=== PATIENT | male | born 1955 | race Caucasian/White ===

== ENCOUNTER 2019-05-03 08:55 | Outpatient (CLI) | payer OTHER ==
--- NOTE | 2019-05-03 15:44 | XRAY Report ---
Reason: LBP, SCIATICA Procedure Date: 05/03/2019 Accession Number: [id number] / [id number] Procedure: XRN - Lumbar Spine 2 View CPT Code: FULL RESULT: EXAM: LUMBOSACRAL SPINE RADIOGRAPHY EXAM DATE: 05/03/2019 09:13 AM. CLINICAL HISTORY: LBP, SCIATICA. COMPARISONS: None. TECHNIQUE: 3 views. FINDINGS: Alignment: Normal. No spondylolisthesis or scoliosis. Bones: Five [id number] lumbar vertebral bodies are present. No fractures or bone lesions. Disks: Osteophyte at every level with disk space narrowing at L3-L4, L4-L5. Facets: L5-S1 facet arthropathy Sacroiliac Joints: Unremarkable. Soft Tissues: Vascular calcifications The visualized bowel gas pattern is normal. IMPRESSION: Moderate DJD RADIA
== END 2019-05-03 08:56 | disposition home or self-care (01) ==
LOC: DI.N 08:55
PROVIDERS: ATTEND Internal Medicine
DX: M51.36 Other intervertebral disc degeneration, lumbar region (principal); M47.816 Spondylosis without myelopathy or radiculopathy, lumbar region
CPT/HCPCS: 72100

== ENCOUNTER 2022-01-21 07:26 | Day surgery (SDC) | payer OTHER ==
[~2022-01-21 07:26] MED LIST: PROPOFOL 500 MG/50 ML 500 MG/50 ML VIAL ONE
[2022-01-21] MEDS ORDERED: LACTATED RINGERS 1,000 ML IV ONE ×2 (07:40→08:27)
--- NOTE | 2022-01-21 07:56 | ANESTHESIA ---
Pre-Anesthesia VS, & Labs - Diagnosis family hx cancer, hx polyps - Procedure colonoscopy Vital Signs: Temp Pulse Resp BP Pulse Ox 36.3 C L 80 16 154/86 H 96 01/21/22 07:41 01/21/22 07:41 01/21/22 07:41 01/21/22 07:41 01/21/22 07:41 Height: 5 ft 9 in Weight (kg): 76 kg Body Mass Index: 24.7 BMI Classification: Healthy weight - NPO >8 hours Last Fluid Intake: am prep - Lab Results Lab results reviewed: Yes Home Medications and Allergies Home Medications: Ambulatory Orders Clopidogrel [Plavix] 1 tab PO DAILY 01/20/22 Lisinopril [Zestril] 1 tab PO DAILY 01/20/22 Simvastatin [Zocor] 1 tab PO DAILY 01/20/22 Tamsulosin [Flomax] 1 cap PO DAILY 01/20/22 hydroCHLOROthiazide [Hydrochlorothiazide] 1 tab PO DAILY 01/20/22 metFORMIN [Glucophage] 1 tab PO DAILY 01/20/22 Clopidogrel [Plavix] 1 tab PO DAILY 01/20/22 Lisinopril [Zestril] 1 tab PO DAILY 01/20/22 Simvastatin [Zocor] 1 tab PO DAILY 01/20/22 Tamsulosin [Flomax] 1 cap PO DAILY 01/20/22 hydroCHLOROthiazide [Hydrochlorothiazide] 1 tab PO DAILY 01/20/22 metFORMIN [Glucophage] 1 tab PO DAILY 01/20/22 Allergies/Adverse Reactions: Allergies Allergy/AdvReac Type Severity Reaction Status Date / Time No Known Drug Allergies Allergy Verified 01/20/22 14:17 Anes History & Medical History - Anesthetic History Anesthesia Complications: reports: No previous complications Family history of Anesthesia Complications: Denies Family history of Malignant Hyperthermia: Denies - Medical History Cardiovascular: reports: Hypertension, High cholesterol Pulmonary: reports: None Gastrointestinal: reports: None Urinary: reports: None Musculoskeletal: reports: Osteoarthritis Endocrine/Autoimmune: reports: Type 2 diabetes Skin: reports: None - Surgical History General: reports: Colonoscopy, EGD Orthopedic: reports: Carpal Tunnel surgery Exam General: Alert, Oriented x3, Cooperative Dental: Other Mouth Openin Fingerbreadth Neck Mobility: Normal Mallampati classification: II Respiratory: Lungs clear, Normal breath sounds, No respiratory distress Cardiovascular: Regular rate Neurological: Normal speech Mental/Cognitive Status: Alert/Oriented X3, Normal for patient Cognitive Status: Within normal limits Plan Anesthesia Type: Total IV Consent for Procedure(s) Verified and Reviewed: Yes Code Status: Attempt Resuscitation ASA classification: 2-Mild systemic disease Is this case an emergency?: No
[2022-01-21] MEDS ORDERED: MIDAZOLAM 2 MG/2 ML VIAL ONE (07:59)
[2022-01-21] MEDS ORDERED: PROPOFOL 200 MG/20 ML VIAL IVP ONE (08:16)
[2022-01-21 09:14] VITALS: BP 130/91
--- NOTE | 2022-01-21 13:32 | ANESTHESIA POST OP EVALUATION ---
Anesthesia Post Eval - Post Anesthesia Eval Vitals: Last Vital Signs Temp 36.6 C 01/21/22 09:12 Pulse 68 01/21/22 09:12 Resp 16 01/21/22 09:12 BP 130/91 H 01/21/22 09:12 Pulse Ox 99 01/21/22 09:12 CV Function Including HR & BP: Stable Pain Control: Satisfactory Nausea & Vomiting: Negative Mental Status: Baseline Respiratory Status: Airway Patent Hydration Status: Satisfactory Anesthesia Complications: None
== END 2022-01-21 07:27 | disposition home or self-care (01) ==
LOC: SDS 07:26
PROVIDERS: ATTEND Surgery
PROC: 0DBL8ZX Excision of Transverse Colon, Via Natural or Artificial Opening Endoscopic, Diagnostic (ICD-10-PCS; 2022-01-21)
PROC: 0DBN8ZX Excision of Sigmoid Colon, Via Natural or Artificial Opening Endoscopic, Diagnostic (ICD-10-PCS; 2022-01-21)
PROC: 0DBP8ZX Excision of Rectum, Via Natural or Artificial Opening Endoscopic, Diagnostic (ICD-10-PCS; principal; 2022-01-21 08:30)
DX: Z12.11 Encounter for screening for malignant neoplasm of colon (principal); D12.3 Benign neoplasm of transverse colon; K57.30 Diverticulosis of large intestine without perforation or abscess without bleeding; K63.5 Polyp of colon; K64.8 Other hemorrhoids; Z80.0 Family history of malignant neoplasm of digestive organs; Z83.71 Family history of colonic polyps; I10 Essential (primary) hypertension; E11.9 Type 2 diabetes mellitus without complications; Z79.84 Long term (current) use of oral hypoglycemic drugs; Z86.010 Personal history of colon polyps
CPT/HCPCS: 45380; J7120

== ENCOUNTER 2022-04-08 08:00 | Outpatient (CLI) | payer OTHER ==
[2022-04-08 16:19] LABS: CALCIUM 9.5 mg/dL (8.5-10.3); POTASSIUM 4.3 mmol/L (3.5-5.0)
[2022-04-08 21:06] LABS: ESTIMATED AVERAGE GLUCOSE 131 mg/dL (70-100); HEMOGLOBIN A1c% 6.2 % (4.27-6.07)
== END 2022-04-08 23:59 | disposition home or self-care (01) ==
LOC: LAB.R 08:00
PROVIDERS: ATTEND Internal Medicine
DX: Z00.00 Encounter for general adult medical examination without abnormal findings (principal); I63.9 Cerebral infarction, unspecified; E11.9 Type 2 diabetes mellitus without complications; M25.559 Pain in unspecified hip; E78.5 Hyperlipidemia, unspecified; I10 Essential (primary) hypertension; M54.50 Low back pain, unspecified; C61 Malignant neoplasm of prostate; M25.519 Pain in unspecified shoulder
CPT/HCPCS: 80048; 82607; 83036

== ENCOUNTER 2022-04-17 10:31 | Outpatient (CLI) | payer OTHER ==
--- NOTE | 2022-04-17 14:46 | XRAY Report ---
PROCEDURE: Hip w/Pelvis 2-3V RT INDICATIONS: LOW BACK PAIN TECHNIQUE: AP pelvis with lateral view(s) of the right hip(s). COMPARISON: None. FINDINGS: Bones: No fractures or dislocations. Pelvic ring appears intact. No suspicious bony lesions. Mild bilateral hip degenerative change. Soft tissues: The visualized bowel gas pattern is normal. No suspicious soft tissue calcifications. Bilateral iliac atherosclerotic calcifications in a pattern which suggests iliac occlusive disease. IMPRESSION: 1. Mild bilateral hip degenerative change. 2. Suspect probable hemodynamically significant bilateral iliac stenotic disease. Comment: If this patient has symptoms suggesting hip claudication, consider CT angiography of the aor ta and lower extremity runoff vessels. Reviewed by: Morgan Duckworth MD on 04/17/2022 2:45 PM PDT Approved by: Morgan Duckworth MD on 04/17/2022 2:45 PM PDT Station ID: [id number]
== END 2022-04-17 10:32 | disposition home or self-care (01) ==
LOC: DI 10:31
PROVIDERS: ATTEND Internal Medicine
DX: M16.0 Bilateral primary osteoarthritis of hip (principal)

== ENCOUNTER 2022-07-31 08:00 | Outpatient (CLI) | payer OTHER ==
[2022-07-31 16:49] LABS: BASOPHILS # (AUTO) 0.1 10^3/uL (0.0-0.1); BASOPHILS % (AUTO) 0.6 %; EOSINOPHILS # (AUTO) 0.2 10^3/uL (0.0-0.7); EOSINOPHILS % (AUTO) 1.6 %; HCT - HEMATOCRIT 42.7 % (42.0-52.0); HGB - HEMOGLOBIN 14.3 g/dL (14.0-18.0); LYMPHOCYTES # (AUTO) 2.1 10^3/uL (1.5-3.5); LYMPHOCYTES % (AUTO) 21.1 %; MEAN CORPUSCULAR HGB CONC 33.5 g/dL (32.0-36.0); MEAN CORPUSCULAR VOLUME 89.5 fL (80.0-94.0); MEAN PLATELET VOLUME 9.8 fL (7.4-11.4); MONOCYTES # (AUTO) 0.9 10^3/uL (0.0-1.0); MONOCYTES % (AUTO) 9.3 %; NEUTROPHILS # (AUTO) 6.8 10^3/uL (1.5-6.6); NEUTROPHILS % (AUTO) 66.9 %; PLT - PLATELET COUNT 309 10^3/uL (130-450); RED BLOOD COUNT 4.77 10^6/uL (4.70-6.10); RED CELL DISTRIBUTION WIDTH 12.5 % (12.0-15.0); WHITE BLOOD COUNT 10.1 x10^3/uL (4.8-10.8)
[2022-07-31 17:02] LABS: MICROALBUM/CREATININE RATIO,UR 2.9 ug/mg (<30.0); MICROALBUMIN,URINE 0.2 mg/dL (0-300.0)
[2022-07-31 17:08] LABS: ALBUMIN 4.5 g/dL (3.2-5.5); ALBUMIN/GLOBULIN RATIO 1.4 (1.0-2.2); ALKALINE PHOSPHATASE 83 IU/L (42-121); ALT ALANINE AMINOTRANSFERASE 18 IU/L (10-60); AST ASPARTATE AMINOTRANSFERASE 26 IU/L (10-42); BILIRUBIN,TOTAL 0.3 mg/dL (0.2-1.0); BUN - BLOOD UREA NITROGEN 25 mg/dL (6-20); CALCIUM 9.5 mg/dL (8.5-10.3); CARBON DIOXIDE - CO2 27 mmol/L (21-32); CHLORIDE 94 mmol/L (101-111); CHOL/HDL RATIO 2.9 (<5.0); CHOLESTEROL 114 mg/dL; CK- CREATINE KINASE 90 IU/L (22-269); CREATININE 1.1 mg/dL (0.6-1.2); GFR - MDRD 67 (>89); GLUCOSE 102 mg/dL (70-100); HDL CHOLESTEROL 40 mg/dL; LDL CHOLESTEROL,CALCULATED 56 mg/dL; LDL/HDL RATIO 1.4 (<3.6); POTASSIUM 4.4 mmol/L (3.5-5.0); SODIUM 134 mmol/L (135-145); TOTAL PROTEIN 7.7 g/dL (6.7-8.2); TRIGLYCERIDES 90 mg/dL; VLDL CHOLESTEROL 18 mg/dL
[2022-07-31 17:14] LABS: PSA TOTAL 0.24 ng/mL (0.000-2.000)
[2022-07-31 17:17] LABS: THYROID STIMULATING HORMONE 0.65 uIU/mL (0.34-5.60)
[2022-07-31 20:39] LABS: ESTIMATED AVERAGE GLUCOSE 137 mg/dL (70-100); HEMOGLOBIN A1c% 6.4 % (4.27-6.07)
== END 2022-07-31 23:59 | disposition home or self-care (01) ==
LOC: LAB.R 08:00
PROVIDERS: ATTEND Internal Medicine
DX: Z00.00 Encounter for general adult medical examination without abnormal findings (principal); I63.9 Cerebral infarction, unspecified; E11.9 Type 2 diabetes mellitus without complications; M25.559 Pain in unspecified hip; E78.5 Hyperlipidemia, unspecified; I10 Essential (primary) hypertension; M54.59 Other low back pain; C61 Malignant neoplasm of prostate; Z79.899 Other long term (current) drug therapy
CPT/HCPCS: 80053; 80061; 82043; 82550; 82570; 82607; 83036; 83721; 84153; 84443; 85025